=== PATIENT | male | born 1980 | race Caucasian/White ===

== ENCOUNTER → 2018-09-20 | Outpatient (CLI) | payer OTHER ==
[~2018-09-20] MED LIST: DICY-42 PO; FLU60SYR36 IM; LOR5 PO; ONDA4TAB97 PO; PRED20TA6 PO
--- NOTE | 2018-09-20 08:30 | EKG ---
FACILITY: [facility] [place] PATIENT NAME: FIDELINA STORY : [id number] MR: [id number]: [id number] EXAM DATE: ORDERING PHYSICIAN: MEENU FOX TECHNOLOGIST: MORGAN Test Reason : PREOP-SHOULDER Blood Pressure : / mmHG Vent. Rate : 067 BPM Atrial Rate : 067 BPM P-R Int : 152 ms QRS Dur : 088 ms QT Int : 404 ms P-R-T Axes : -01 035 047 degrees QTc Int : 426 ms Normal sinus rhythm Normal ECG No previous ECGs available Confirmed by MEENU HENAO ([id number]) on 09/20/2018 5:43:30 PM Referred By: DOMINIQUE Confirmed By:MEENU HENAO
[2018-09-20 08:32] LABS: PLATELET COUNT, AUTOMATED 210 K/uL (150-450)
== END ==
LOC: LAB 08:01
PROVIDERS: ATTEND Anesthesiology
DX: Z01.812 Encounter for preprocedural laboratory examination (principal); Z01.810 Encounter for preprocedural cardiovascular examination; M75.111 Incomplete rotator cuff tear or rupture of right shoulder, not specified as traumatic
CPT/HCPCS: 36415; 82040; 82247; 82310; 82374; 82435; 82565; 82947; 84075; 84132; 84155; 84295; 84450; 84460; 84520; 85025; 93005

== ENCOUNTER → 2018-11-12 | Outpatient (CLI) | payer OTHER ==
[~2018-11-12] MED LIST changes: +ALPR-448 PO
== END ==
LOC: LAB 09:50
PROVIDERS: ATTEND Urology
DX: Z30.2 Encounter for sterilization (principal)
CPT/HCPCS: 88302